=== PATIENT | female | born 1985 | race Asian ===

== ENCOUNTER → 2016-10-10 | Outpatient (REF) | payer BC ==
[~2016-10-10] MED LIST: FOLI1TAB2 PO; IBUP80TA PO; MULTTAB20 PO; PRENTAB40 PO; VALT500T PO; VIRE300T PO; ZITH250T PO
== END ==
LOC: M SFHCPLAZ 09:01
PROVIDERS: ATTEND Internal Medicine Infectious Disease
DX: B18.1 Chronic viral hepatitis B without delta-agent (principal)

== ENCOUNTER → 2016-10-13 | Outpatient (REF) | payer BC ==
[2016-10-13 12:17] LABS: BASO % 0.3 % (0.0-1.0); EOS # 0.1 K/mm3 (0.0-0.50); EOS % 1.4 % (0.0-3.0); LARGE UNSTAINED CELL # 0.2 K/mm3 (0.0-0.4); LARGE UNSTAINED CELL % 2.4 % (0.0-4.0); LYMPH # 1.8 K/mm3 (1.5-6.5); LYMPH % 21.3 % (24.0-44.0); MEAN CORPUSCULAR HEMOGLOBIN 30.2 pg (27.0-33.0); MEAN CORPUSCULAR HGB CONC 33.5 g/dl (32.0-36.5); MEAN CORPUSCULAR VOLUME 90.4 fl (80.0-96.0); MONO # 0.4 K/mm3 (0.0-0.8); MONO % 5.1 % (0.0-5.0); NEUTROPHILS # 5.8 K/mm3 (1.8-7.7); NEUTROPHILS % 69.5 % (36.0-66.0); PLATELET COUNT, AUTOMATED 291 k/mm3 (150-450); RED CELL DISTRIBUTION WIDTH 12.5 % (11.5-14.5); WHITE BLOOD COUNT 8.3 K/mm3 (4.0-10.0)
[2016-10-13 13:07] LABS: ALBUMIN 3.8 GM/DL (3.2-5.2); ALBUMIN/GLOBULIN RATIO 0.88 (1.00-1.93); ALKALINE PHOSPHATASE 77 U/L (45-117); ALT/SGPT 65 U/L (12-78); ANION GAP 10 MEQ/L (8-16); AST/SGOT 29 U/L (15-37); BILIRUBIN,TOTAL 0.7 MG/DL (0.2-1.0); BLOOD UREA NITROGEN 12 MG/DL (7-18); CALCIUM LEVEL 8.9 MG/DL (8.5-10.1); CARBON DIOXIDE LEVEL 29 MEQ/L (21-32); CHLORIDE LEVEL 101 MEQ/L (98-107); CHOLESTEROL LEVEL 210 MG/DL (<200); CREATININE FOR GFR 0.64 MG/DL (0.55-1.02); FREE T4 0.93 NG/DL (0.76-1.46); GLOMERULAR FILTRATION RATE > 60.0 (>60); GLUCOSE, FASTING 83 MG/DL (70-105); POTASSIUM SERUM 4.1 MEQ/L (3.5-5.1); SODIUM LEVEL 140 MEQ/L (136-145); TOTAL PROTEIN 8.1 GM/DL (6.4-8.2); TRIGLYCERIDES LEVEL 110 MG/DL (<150)
== END ==
LOC: M SFHCPLAZ 09:48
PROVIDERS: ATTEND Internal Medicine Infectious Disease
DX: Z00.00 Encounter for general adult medical examination without abnormal findings (principal); B18.1 Chronic viral hepatitis B without delta-agent

== ENCOUNTER → 2016-10-21 | Outpatient (CLI) | payer BC ==
--- NOTE | 2016-10-21 10:18 | REP ---
Liver ultrasound 10/21/2016 Indication: Right hepatitis B Comparison: None Findings: The gallbladder measures 6.3 x 2.8 by 2.5 cm in dimension. There is no cholelithiasis or gallbladder wall thickening. There is no pericholecystic fluid. There is a negative sonographic Melendez's sign. Common bile duct is 4.3 mm transverse dimension, within normal limits. The hepatic parenchyma is homogeneous in echotexture, without focal lesions or fatty infiltration. The pancreatic tail is slightly obscured by bowel gas. The remainder of the pancreas is within normal limits. The right kidney measures 12.0 by 5.7 x 4.3 cm. There is very minimal right renal pelviectasis. The renal cortical echogenicity is within normal limits. Impression 1. No evidence of cholelithiasis or biliary dilatation. Negative sonographic Melendez's sign 2. Unremarkable liver 3. Pancreatic tail slightly obscured by bowel gas. The remainder of the pancreas is unremarkable. 4. Minimal right renal pelviectasis. Signed by Poppy Martel MD 10/21/2016 10:09 A
== END ==
LOC: M RAD 09:00
PROVIDERS: ATTEND Internal Medicine Infectious Disease
DX: B18.1 Chronic viral hepatitis B without delta-agent (principal)

== ENCOUNTER 2016-11-23 15:58 | Emergency (ER) | payer BC, OTHER ==
[2016-11-23 17:25] LABS: BASO % 0.5 % (0.0-1.0); EOS % 0.6 % (0.0-3.0); LARGE UNSTAINED CELL # 0.2 K/mm3 (0.0-0.4); LYMPH # 1.3 K/mm3 (1.5-6.5); LYMPH % 14.6 % (24.0-44.0); MEAN CORPUSCULAR HEMOGLOBIN 29.9 pg (27.0-33.0); MEAN CORPUSCULAR VOLUME 90.5 fl (80.0-96.0); MONO # 0.4 K/mm3 (0.0-0.8); MONO % 4.3 % (0.0-5.0); NEUTROPHILS # 7.1 K/mm3 (1.8-7.7); NEUTROPHILS % 78.1 % (36.0-66.0); PLATELET COUNT, AUTOMATED 252 k/mm3 (150-450); RED CELL DISTRIBUTION WIDTH 11.7 % (11.5-14.5); WHITE BLOOD COUNT 9.1 K/mm3 (4.0-10.0)
[2016-11-23 17:30] LABS: CONTROL LINE UCG INT CTR LINE PRESENT
[2016-11-23 17:35] LABS: ANION GAP 7 MEQ/L (8-16); BLOOD UREA NITROGEN 10 MG/DL (7-18); CALCIUM LEVEL 9.1 MG/DL (8.5-10.1); CARBON DIOXIDE LEVEL 30 MEQ/L (21-32); CHLORIDE LEVEL 101 MEQ/L (98-107); CREATININE FOR GFR 0.67 MG/DL (0.55-1.02); GLOMERULAR FILTRATION RATE > 60.0 (>60); GLUCOSE, FASTING 111 MG/DL (70-105); POTASSIUM SERUM 3.8 MEQ/L (3.5-5.1); SODIUM LEVEL 138 MEQ/L (136-145)
[2016-11-23] MEDS ORDERED: BACTRIM 160MG/800MG DS TAB As Ordered ONE (18:17)
[2016-11-23] MEDS ORDERED: CEPHALEXIN 500 MG CAP As Ordered ONE (18:18)
--- NOTE | 2016-11-23 18:32 | EDDOCDS ---
Nurse's Notes [facility] Name: Niki No Age: 31 yrs Sex: Female : 1985 Arrival Date: 11/23/2016 Time: 15:58 Bed I4 / M4 Private MD: Maribel Rice M. Diagnosis: Streptococcal pharyngitis;Urinary tract infection, site not specified Presentation: 11/23 16:01 Presenting complaint: Patient states: Fever of 104.8 at home. LOYA, back pain since ck1 yesterday morning. Adult Sepsis Screening: The patient does not have new or worsening altered mentation. Patient's respiratory rate is less than 22. Systolic blood pressure is greater than 100. Patient has a qSOFA score of 0- Negative Sepsis Screen. Suicide/Homicide risk assessment- the patient denies having any suicidal and/or homicidal ideations and does not present with any other emotional, behavioral or mental health complaints. Status: Patient is not a customer service advocate or dependent. Transition of care: patient was not received from another setting of care. 16:01 Method Of Arrival: Walkin/Carried/Asstd ck1 16:01 Acuity: YVETTE Level 3 ck1 Triage Assessment: 16:04 General: Appears in no apparent distress, comfortable, Behavior is appropriate for age, ck1 cooperative. Pain: Location: head and back Pain currently is 7 out of 10 on a pain scale. HIV screening NA for this visit Offered previously. Respiratory: Respiratory effort is unlabored, Respiratory pattern is regular, symmetrical. GI: Abdomen is non- distended Reports nausea. Derm: Skin is intact, Skin is pink, warm & dry. SHIRRING TENDER: 16:05 LMP 11/17/2016 ck1 Historical: - Allergies: No known drug Allergies; - Home Meds: 1. Tylenol 325 mg oral tab 2 tabs PRN (Last dose: 11/23/2016 11:00) 2. ibuprofen 200 mg Oral cap 2 caps PRN (Last dose: 11/23/2016 16:00) - PMHx: Hepatitis B; - PSHx: Thyroidectomy; Cesearean Section; - Social history: Smoking status: Patient states was never smoker of tobacco. No barriers to communication noted, The patient speaks fluent Mongolian, Speaks appropriately for age. - Family history: co workers positive for flu A. - : The pt / caregiver states he / she is not on anticoagulants. Home medication list is obtained from the patient. - Exposure Risk Screening:: None identified. Screenin:11 Screening information is obtained from the patient. Fall risk: No risks identified. lf1 Assistance ADL's: requires no assistance with activities of daily living. Abuse/DV Screen: The patient / caregiver reports he/she is: not in a situation that causes fear, pain or injury. Nutritional screening: No deficits noted. Advance Directives: Currently, there is no health care proxy. home support is adequate. Assessment: 16:11 Adult Sepsis Screening: The patient does not have new or worsening altered mentation. lf1 Patient's respiratory rate is less than 22. Systolic blood pressure is greater than 100. Patient has a qSOFA score of 0- Negative Sepsis Screen. General: Appears in no apparent distress, comfortable, Behavior is cooperative. Pain: Location: back and head Pain currently is 7 out of 10 on a pain scale. Neurological: Level of Consciousness is awake, alert. Cardiovascular: Chest pain is denied. Respiratory: Respiratory effort is even, unlabored. GI: Denies nausea, vomiting. : Reports urinary frequency Denies burning with urination. Derm: No deficits noted. 17:30 General: PT in no acute distress. Will continue to monitor pt. ms18 18:29 General: Appears in no apparent distress, comfortable, Behavior is appropriate for age, ms18 cooperative, pleasant. Pain: Pain currently is 5 out of 10 on a pain scale. Neurological: Level of Consciousness is awake, alert, obeys commands, Oriented to person, place, time. Respiratory: Airway is patent Respiratory effort is even, unlabored, Respiratory pattern is regular, symmetrical. Derm: Skin is pink, warm & dry. Vital Signs: 15:59 BP 106 / 83; Pulse 93; Resp 18 S; Temp 101.0(O); Pulse Ox 100% on R/A; Weight 66.22 kg gr2 (R); Height 5 ft. 3 in. (160.02 cm) (R); Pain 5/10; 18:29 BP 127 / 67; Pulse 99; Resp 18; Temp 100.1(O); Pulse Ox 98% on R/A; Pain 5/10; ms18 15:59 Body Mass Index 25.86 (66.22 kg, 160.02 cm) gr2 Vitals: 15:59 Log In Time: November 23, 2016 at 15:59. gr2 17:14 Strep Screen is obtained and tested: Positive. ms18 ED Course: 15:59 Patient visited by Lisa Martell. gr2 15:59 Maribel Rice is Private Physician. gr2 15:59 Patient moved to Waiting gr2 16:00 Patient visited by Lisa Martell. gr2 16:00 Patient moved to Pre RCE gr2 16:02 Triage Initiated ck1 16:05 Patient moved to Triage 2 ck1 16:15 UA Sent. lf1 16:17 Patient visited by Mel Edwards,MADDY. lf1 16:20 Inserted saline lock: 20 gauge in right antecubital area. jmk 16:22 Oswaldo Laurent RPA-C is PHCP. ck7 16:22 Naye Werner MD is Attending Physician. ck7 16:22 Patient visited by Oswaldo Laurent RPA-C. ck7 16:36 Patient name changed from Yandan\S\\S\No\S\ to Yandan\S\ \S\No. EDMS 16:38 Patient moved to I4 / M4 lf1 16:39 [facility] Payment Agreement was scanned into [employer] and attached to record. gb 16:54 Patient visited by Oswaldo Laurent RPA-C. ck7 17:16 Patient visited by Liseth Schafer,MADDY. ms18 17:16 Urine Culture Sent. ms18 17:17 UCG- In Lab Sent. ms18 17:41 The patient / caregiver is instructed regarding the plan of care and ED course. jmk 17:42 Patient visited by Deny Reeves,MADDY. jmk 18:13 Patient visited by Oswaldo Laurent RPA-C. ck7 18:15 Maribel Rice is Referral Physician. ck7 18:29 Patient visited by Liseth Schafer,MADDY. ms18 18:29 Patient has correct armband on for positive identification. Placed in gown. Property ms18 sent home with patient. :Personal belongings accompany Pt. 18:29 Discontinued IV lock intact, bleeding controlled, pressure dressing applied, No ms18 redness/swelling at site. No procedures done that require assistance. Administered Medications: 18:21 Drug: Trimethoprim-Sulfamethoxazole 1 tabs [sulfamethoxazole 800 mg-trimethoprim 160 mg jmk tablet (1 tabs)] Route: PO; 18:22 Drug: Cephalexin 500 mg [cephalexin 250 mg capsule (2 caps)] Route: PO; jmk Order Results: Lab Order: UA; SPEC'M 11/23/16 16:12 Test: APPEARANCE, URINE; Value: CLOUDY; Range: CLEAR; Abnormal: Above high normal; Status: F Test: COLOR, URINE; Value: YELLOW; Range: YELLOW; Status: F Test: PH,URINE; Value: 8.0; Range: 5.0-9.0; Units: UNITS; Status: F Test: SPECIFIC GRAVITY URINE AUTO; Value: 1.019; Range: 1.002-1.035; Status: F Test: PROTEIN, URINE AUTO; Value: NEGATIVE; Range: NEGATIVE; Units: mg/dL; Status: F Test: GLUCOSE, URINE (UA) AUTO; Value: NEGATIVE; Range: NEGATIVE; Units: mg/dL; Status: F Test: KETONE, URINE AUTO; Value: NEGATIVE; Range: NEGATIVE; Units: mg/dL; Status: F Test: UROBILINOGEN, URINE AUTO; Value: 0.2; Range: 0.0-2.0; Units: mg/dL; Status: F Test: BILIRUBIN, URINE AUTO; Value: NEGATIVE; Range: NEGATIVE; Status: F Test: NITRITE, URINE AUTO; Value: NEGATIVE; Range: NEGATIVE; Status: F Test: LEUKOCYTE ESTERASE, URINE AUTO; Value: 3+; Range: NEGATIVE; Abnormal: Above high normal; Status: F Test: BLOOD, URINE BLOOD; Value: NEGATIVE; Range: NEGATIVE; Status: F Test: WBC, URINE AUTO; Value: 30; Range: 0-3; Abnormal: Above high normal; Units: /HPF; Status: F Test: RBC, URINE AUTO; Value: 2; Range: 0-3; Units: /HPF; Status: F Test: BACTERIA, URINE AUTO; Value: 1+; Range: NEGATIVE; Abnormal: Above high normal; Status: F Test: SQUAMOUS EPITHELIAL CELL UR AU; Value: 8; Range: 0-6; Units: /HPF; Status: F Test: HYALINE CAST, URINE AUTO; Value: 0; Range: 0-1; Units: /LPF; Status: F Test: AMORPHOUS SEDIMENT; Value: SMALL; Range: NEGATIVE; Abnormal: Above high normal; Status: F Lab Order: CBC with Diff; SPEC'M 11/23/16 16:46 Test: WHITE BLOOD COUNT; Value: 9.1; Range: 4.0-10.0; Units: K/mm3; Status: F Test: RED BLOOD COUNT; Value: 4.77; Range: 4.00-5.40; Units: M/mm3; Status: F Test: HEMOGLOBIN; Value: 14.3; Range: 12.0-16.0; Units: g/dl; Status: F Test: HEMATOCRIT; Value: 43.2; Range: 36.0-47.0; Units: %; Status: F Test: MEAN CORPUSCULAR VOLUME; Value: 90.5; Range: 80.0-96.0; Units: fl; Status: F Test: MEAN CORPUSCULAR HEMOGLOBIN; Value: 29.9; Range: 27.0-33.0; Units: pg; Status: F Test: MEAN CORPUSCULAR HGB CONC; Value: 33.0; Range: 32.0-36.5; Units: g/dl; Status: F Test: RED CELL DISTRIBUTION WIDTH; Value: 11.7; Range: 11.5-14.5; Units: %; Status: F Test: PLATELET COUNT, AUTOMATED; Value: 252; Range: 150-450; Units: k/mm3; Status: F Test: NEUTROPHILS %; Value: 78.1; Range: 36.0-66.0; Abnormal: Above high normal; Units: %; Status: F Test: LYMPH %; Value: 14.6; Range: 24.0-44.0; Abnormal: Below low normal; Units: %; Status: F Test: MONO %; Value: 4.3; Range: 0.0-5.0; Units: %; Status: F Test: EOS %; Value: 0.6; Range: 0.0-3.0; Units: %; Status: F Test: BASO %; Value: 0.5; Range: 0.0-1.0; Units: %; Status: F Test: LARGE UNSTAINED CELL %; Value: 2.0; Range: 0.0-4.0; Units: %; Status: F Test: NEUTROPHILS #; Value: 7.1; Range: 1.8-7.7; Units: K/mm3; Status: F Test: LYMPH #; Value: 1.3; Range: 1.5-6.5; Abnormal: Below low normal; Units: K/mm3; Status: F Test: MONO #; Value: 0.4; Range: 0.0-0.8; Units: K/mm3; Status: F Test: EOS #; Value: 0.0; Range: 0.0-0.50; Units: K/mm3; Status: F Test: BASO #; Value: 0.0; Range: 0.0-0.2; Units: K/mm3; Status: F Test: LARGE UNSTAINED CELL #; Value: 0.2; Range: 0.0-0.4; Units: K/mm3; Status: F Lab Order: MED Profile; [facility] 11/23/16 16:46 Test: GLUCOSE, FASTING; Value: 111; Range: 70-105; Abnormal: Above high normal; Units: MG/DL; Status: F Test: BLOOD UREA NITROGEN; Value: 10; Range: 7-18; Units: MG/DL; Status: F Test: CREATININE FOR GFR; Value: 0.67; Range: 0.55-1.02; Units: MG/DL; Status: F Test: GLOMERULAR FILTRATION RATE; Value: > 60.0; Range: >60; Status: F Test: SODIUM LEVEL; Value: 138; Range: 136-145; Units: MEQ/L; Status: F Test: POTASSIUM SERUM; Value: 3.8; Range: 3.5-5.1; Units: MEQ/L; Status: F Test: CHLORIDE LEVEL; Value: 101; Range: 98-107; Units: MEQ/L; Status: F Test: CARBON DIOXIDE LEVEL; Value: 30; Range: 21-32; Units: MEQ/L; Status: F Test: ANION GAP; Value: 7; Range: 8-16; Abnormal: Below low normal; Units: MEQ/L; Status: F Test: CALCIUM LEVEL; Value: 9.1; Range: 8.5-10.1; Units: MG/DL; Status: F Test Note: ; Units are mL/min/1.73 m2 Chronic Kidney Disease Staging per NKF: Stage I & II GFR >=60 Normal to Mildly Decreased Stage III GFR 30-59 Moderately Decreased Stage IV GFR 15-29 Severely Decreased Stage V GFR <15 Very Little GFR Left ESRD GFR <15 on BLOCK CLEANER Lab Order: -Influenza A&B Rapid Antigen - Nose; SPEC'M 11/23/16 16:46 Test: INFLUENZA A RAPID SCR by ICA; Value: INFLUENZA A RESULTS NEGATIVE; Status: F Test: INFLUENZA A RAPID SCR by ICA; Value: Comments:; Status: F Test: INFLUENZA B RAPID SCR by ICA; Value: INFLUENZA B RESULTS NEGATIVE; Status: F Test Note: ; The Influenza test is a direct rapid immunoassay for the qualitative detection of Influenza viral antigen. Cell culture (Viral Culture) testing should be considered to confirm NEGATIVE results and to assist in detecting other viruses that can provide similar clinical symptoms. Please contact the lab within 24 hours ([phone] if confirmatory testing is desired. Lab Order: UCG- In Lab; SPEC'M 11/23/16 16:12 Test: URINE PREG TEST; Value: NEGATIVE; Range: NEGATIVE; Status: F Outcome: 18:16 Discharge ordered by Provider. ck7 18:29 Discharge Assessment: Patient awake, alert and oriented x 3. No cognitive and/or ms18 functional deficits noted. Patient verbalized understanding of disposition instructions. patient administered narcotics - no. The following High Risk Discharge criteria are identified: None. Discharged to home ambulatory. Condition: good Condition: stable Condition: improved. Discharge instructions given to patient, Instructed on discharge instructions, follow up and referral plans. medication usage, Demonstrated understanding of instructions, medications, Pt was receptive of discharge instructions/ teaching. Prescriptions given X 2. No special radiology studies were completed. 18:31 Patient left the ED. ms18 Signatures: Dispatcher [employer] EDMS Deny Reeves,RN RN Diana Mcleod, Reg Reg Helena Zaldivar,RN RN ck1 Mel EdwardsRN RN lf1 Oswaldo Laurent RPA-C RPA-Cck7 Lisa Martell gr2 Liseth Schafer RN RN ms18 MTDD
--- NOTE | 2016-11-23 18:32 | EDDOCDS ---
Physician Documentation [facility] Name: Niki No Age: 31 yrs Sex: Female : 1985 Arrival Date: 11/23/2016 Time: 15:58 Bed I4 / M4 Private MD: Maribel Rice M. Disposition: 11/23/16 18:16 Discharged to Home/Self Care. Impression: Streptococcal pharyngitis, Urinary tract infection, site not specified. - Condition is Stable. - Discharge Instructions: Strep Throat, Hkes-cz-Yvoz, Urinary Tract Infection, Wdgv-ie-Meuk. - Prescriptions for Keflex 500 mg Oral Capsule - take 1 capsule by ORAL route every 6 hours for 10 days; 40 capsule. Bactrim DS 800- 160 mg Oral Tablet - take 1 tablet by ORAL route every 12 hours for 10 days; 20 tablet. - Medication Reconciliation, Local Pharmacy Hours form. - Follow up: Maribel Rice; When: 2 - 3 days; Reason: Recheck today's complaints, Continuance of care. - Problem is new. - Symptoms have improved. - Notes: USE THE MEDICATION INSTRUCTED, FOLLOW UP WITH YOUR DOCTOR IN 2-3 DAYS, USE TYLENOL OR MOTRIN FOR FEVER CONTROL, RETURN TO THE ER IF THE SYMPTOMS WORSEN OR BECOME CONCERNING Historical: - Allergies: No known drug Allergies; - Home Meds: 1. Tylenol 325 mg oral tab 2 tabs PRN (Last dose: 11/23/2016 11:00) 2. ibuprofen 200 mg Oral cap 2 caps PRN (Last dose: 11/23/2016 16:00) - PMHx: Hepatitis B; - PSHx: Thyroidectomy; Cesearean Section; - Social history: Smoking status: Patient states was never smoker of tobacco. No barriers to communication noted, The patient speaks fluent Yakut, Speaks appropriately for age. - Family history: co workers positive for flu A. - : The pt / caregiver states he / she is not on anticoagulants. Home medication list is obtained from the patient. - Exposure Risk Screening:: None identified. LVN: 11/23 16:05 LMP 11/17/2016 ck1 Vital Signs: 15:59 BP 106 / 83; Pulse 93; Resp 18 S; Temp 101.0(O); Pulse Ox 100% on R/A; Weight 66.22 kg gr2 / 145.99 lbs (R); Height 5 ft. 3 in. (160.02 cm) (R); Pain 5/10; 18:29 BP 127 / 67; Pulse 99; Resp 18; Temp 100.1(O); Pulse Ox 98% on R/A; Pain 5/10; ms18 15:59 Body Mass Index 25.86 (66.22 kg, 160.02 cm) gr2 MDM: 16:11 UA Ordered. EDMS 16:32 Financial registration complete. gb 16:32 -Blood Culture (Adults Only), peripheral from different site, or from device/port/PICC ck7 etc. if present ordered. 16:32 Obtain sample by nasopharyngeal swab ordered. ck7 16:32 Strep Screen, Nursing ordered. ck7 16:33 CBC with Diff Ordered. EDMS 16:33 MED Profile Ordered. EDMS 16:33 Urine Culture Ordered. EDMS 16:33 -Blood Culture Ordered. EDMS 16:33 -Influenza A&B Rapid Antigen - Nose Ordered. EDMS 16:33 Chest, 2 View (pa\E\lat) Ordered. EDMS 16:39 [facility] [place] was scanned into [employer] and attached to record. gb 16:54 -Blood Culture (Adults Only), peripheral from different site, or from device/port/PICC nb2 etc. if present complete. 16:55 BLOOD CULTURES Ordered. EDMS 17:17 UCG- In Lab Ordered. EDMS 17:36 UA Reviewed. ck7 17:36 CBC with Diff Reviewed. ck7 17:36 -Influenza A&B Rapid Antigen - Nose Reviewed. ck7 17:36 UCG- In Lab Reviewed. ck7 17:42 MED Profile Reviewed. ck7 17:43 Cephalexin 500 mg PO once ordered. ck7 17:43 Trimethoprim-Sulfamethoxazole 160 mg-800 mg (DS) 1 tabs PO once ordered. ck7 Administered Medications: 18:21 Drug: Trimethoprim-Sulfamethoxazole 1 tabs [sulfamethoxazole 800 mg-trimethoprim 160 mg jmk tablet (1 tabs)] Route: PO; 18:22 Drug: Cephalexin 500 mg [cephalexin 250 mg capsule (2 caps)] Route: PO; jmk Signatures: Dispatcher [employer] EDMS Diana Pena, Reg Reg Helena Zaldivar,RN RN ck1 Edwards,Mel,RN RN lf1 Oswaldo Laurent, RPA-C RPA-Cck7 Liseth SchaferRN RN ms18 Tiffany Patterson Jean RN jmk The chart was reviewed and I authenticate all verbal orders and agree with the evaluation and treatment provided.Corrections: (The following items were deleted from the chart) 17:16 16:32 UCG by Nursing ordered. ck7 ms18 Attachments: 16:39 [facility] [place] Agreement gb MTDD
--- NOTE | 2016-11-23 19:11 | REP ---
CHEST X-RAY, PA AND LATERAL: 11/23/2016. Clinical history: Fever. Findings: Two views are presented without prior study. Findings: Lungs are well inflated. There is some peribronchial thickening and streaky densities perihilar region, right greater than left. No dense consolidation or effusion. Heart, mediastinal and hilar contours are normal. Airway intact. Bony thorax shows no focal lesion. Impression: 1. Some minor perihilar streaky densities and peribronchial thickening right greater than left. This may reflect bronchitis or reactive airway disease. No effusion. Signed by Alexis Garcia MD 11/23/2016 08:30 P
--- NOTE | 2016-11-25 19:32 | EDDOCDS ---
Physician Documentation [facility] Name: Niki No Age: 31 yrs Sex: Female : 1985 Arrival Date: 11/23/2016 Time: 15:58 Bed I4 / M4 Private MD: Maribel Rice M. Disposition: 11/23/16 18:16 Discharged to Home/Self Care. Impression: Streptococcal pharyngitis, Urinary tract infection, site not specified. - Condition is Stable. - Discharge Instructions: Strep Throat, Wobv-di-Flgv, Urinary Tract Infection, Wbms-ko-Ezlw. - Prescriptions for Keflex 500 mg Oral Capsule - take 1 capsule by ORAL route every 6 hours for 10 days; 40 capsule. Bactrim DS 800- 160 mg Oral Tablet - take 1 tablet by ORAL route every 12 hours for 10 days; 20 tablet. - Medication Reconciliation, Local Pharmacy Hours form. - Follow up: Maribel Rice; When: 2 - 3 days; Reason: Recheck today's complaints, Continuance of care. - Problem is new. - Symptoms have improved. - Notes: USE THE MEDICATION INSTRUCTED, FOLLOW UP WITH YOUR DOCTOR IN 2-3 DAYS, USE TYLENOL OR MOTRIN FOR FEVER CONTROL, RETURN TO THE ER IF THE SYMPTOMS WORSEN OR BECOME CONCERNING Historical: - Allergies: No known drug Allergies; - Home Meds: 1. Tylenol 325 mg oral tab 2 tabs PRN (Last dose: 11/23/2016 11:00) 2. ibuprofen 200 mg Oral cap 2 caps PRN (Last dose: 11/23/2016 16:00) - PMHx: Hepatitis B; - PSHx: Thyroidectomy; Cesearean Section; - Social history: Smoking status: Patient states was never smoker of tobacco. No barriers to communication noted, The patient speaks fluent Sami, Speaks appropriately for age. - Family history: co workers positive for flu A. - : The pt / caregiver states he / she is not on anticoagulants. Home medication list is obtained from the patient. - Exposure Risk Screening:: None identified. TWO WAY RADIO INSTALLER: 11/23 16:05 LMP 11/17/2016 ck1 Vital Signs: 15:59 BP 106 / 83; Pulse 93; Resp 18 S; Temp 101.0(O); Pulse Ox 100% on R/A; Weight 66.22 kg gr2 / 145.99 lbs (R); Height 5 ft. 3 in. (160.02 cm) (R); Pain 5/10; 18:29 BP 127 / 67; Pulse 99; Resp 18; Temp 100.1(O); Pulse Ox 98% on R/A; Pain 5/10; ms18 15:59 Body Mass Index 25.86 (66.22 kg, 160.02 cm) gr2 MDM: 16:11 UA Ordered. EDMS 16:32 Financial registration complete. gb 16:32 -Blood Culture (Adults Only), peripheral from different site, or from device/port/PICC ck7 etc. if present ordered. 16:32 Obtain sample by nasopharyngeal swab ordered. ck7 16:32 Strep Screen, Nursing ordered. ck7 16:33 CBC with Diff Ordered. EDMS 16:33 MED Profile Ordered. EDMS 16:33 Urine Culture Ordered. EDMS 16:33 -Blood Culture Ordered. EDMS 16:33 -Influenza A&B Rapid Antigen - Nose Ordered. EDMS 16:33 Chest, 2 View (pa\E\lat) Ordered. EDMS 16:39 [facility] [place] Payment Agreement was scanned into [employer] and attached to record. gb 16:54 -Blood Culture (Adults Only), peripheral from different site, or from device/port/PICC nb2 etc. if present complete. 16:55 BLOOD CULTURES Ordered. EDMS 17:17 UCG- In Lab Ordered. EDMS 17:36 UA Reviewed. ck7 17:36 CBC with Diff Reviewed. ck7 17:36 -Influenza A&B Rapid Antigen - Nose Reviewed. ck7 17:36 UCG- In Lab Reviewed. ck7 17:42 MED Profile Reviewed. ck7 17:43 Cephalexin 500 mg PO once ordered. ck7 17:43 Trimethoprim-Sulfamethoxazole 160 mg-800 mg (DS) 1 tabs PO once ordered. ck7 11/24 17:52 T-Sheet-- Draft Copy was scanned into [employer] and attached to record. klr Administered Medications: 11/23 18:21 Drug: Trimethoprim-Sulfamethoxazole 1 tabs [sulfamethoxazole 800 mg-trimethoprim 160 mg jmk tablet (1 tabs)] Route: PO; 18:22 Drug: Cephalexin 500 mg [cephalexin 250 mg capsule (2 caps)] Route: PO; bong Signatures: Dispatcher [employer] EDMS Diana Pena, Reg Reg gb Helena GaleRN RN ck1 Mel EdwardsRN RN lf1 Oswaldo Laurent, PERLITA-C RPA-Cck7 Liseth Schafer RN RN ms18 Deanne Zarate Nicole nb2 Knapp, Jean RN jmk The chart was reviewed and I authenticate all verbal orders and agree with the evaluation and treatment provided.Corrections: (The following items were deleted from the chart) 17:16 16:32 UCG by Nursing ordered. ck7 ms18 Attachments: 16:39 [facility] [place] Payment Agreement 11/24 17:52 T-Sheet-- Draft Copy juan josé Chart Complete MTDD
--- NOTE | 2016-11-25 19:32 | EDDOCDS ---
Physician Documentation [facility] Name: Niki No Age: 31 yrs Sex: Female : 1985 Arrival Date: 11/23/2016 Time: 15:58 Bed I4 / M4 Private MD: Maribel Rice M. Disposition: 11/23/16 18:16 Discharged to Home/Self Care. Impression: Streptococcal pharyngitis, Urinary tract infection, site not specified. - Condition is Stable. - Discharge Instructions: Strep Throat, [id number], Urinary Tract Infection, [id number]. - Prescriptions for Keflex 500 mg Oral Capsule - take 1 capsule by ORAL route every 6 hours for 10 days; 40 capsule. Bactrim DS 800- 160 mg Oral Tablet - take 1 tablet by ORAL route every 12 hours for 10 days; 20 tablet. - Medication Reconciliation, Local Pharmacy Hours form. - Follow up: Maribel Rice; When: 2 - 3 days; Reason: Recheck today's complaints, Continuance of care. - Problem is new. - Symptoms have improved. - Notes: USE THE MEDICATION INSTRUCTED, FOLLOW UP WITH YOUR DOCTOR IN 2-3 DAYS, USE TYLENOL OR MOTRIN FOR FEVER CONTROL, RETURN TO THE ER IF THE SYMPTOMS WORSEN OR BECOME CONCERNING Historical: - Allergies: No known drug Allergies; - Home Meds: 1. Tylenol 325 mg oral tab 2 tabs PRN (Last dose: 11/23/2016 11:00) 2. ibuprofen 200 mg Oral cap 2 caps PRN (Last dose: 11/23/2016 16:00) - PMHx: Hepatitis B; - PSHx: Thyroidectomy; Cesearean Section; - Social history: Smoking status: Patient states was never smoker of tobacco. No barriers to communication noted, The patient speaks fluent Chinese, Speaks appropriately for age. - Family history: co workers positive for flu A. - : The pt / caregiver states he / she is not on anticoagulants. Home medication list is obtained from the patient. - Exposure Risk Screening:: None identified. MODELER: 11/23 16:05 LMP 11/17/2016 ck1 Vital Signs: 15:59 BP 106 / 83; Pulse 93; Resp 18 S; Temp 101.0(O); Pulse Ox 100% on R/A; Weight 66.22 kg gr2 / 145.99 lbs (R); Height 5 ft. 3 in. (160.02 cm) (R); Pain 5/10; 18:29 BP 127 / 67; Pulse 99; Resp 18; Temp 100.1(O); Pulse Ox 98% on R/A; Pain 5/10; ms18 15:59 Body Mass Index 25.86 (66.22 kg, 160.02 cm) gr2 MDM: 16:11 UA Ordered. EDMS 16:32 Financial registration complete. gb 16:32 -Blood Culture (Adults Only), peripheral from different site, or from device/port/PICC ck7 etc. if present ordered. 16:32 Obtain sample by nasopharyngeal swab ordered. ck7 16:32 Strep Screen, Nursing ordered. ck7 16:33 CBC with Diff Ordered. EDMS 16:33 MED Profile Ordered. EDMS 16:33 Urine Culture Ordered. EDMS 16:33 -Blood Culture Ordered. EDMS 16:33 -Influenza A&B Rapid Antigen - Nose Ordered. EDMS 16:33 Chest, 2 View (pa\E\lat) Ordered. EDMS 16:39 [facility] [place] Payment Agreement was scanned into [employer] and attached to record. gb 16:54 -Blood Culture (Adults Only), peripheral from different site, or from device/port/PICC nb2 etc. if present complete. 16:55 BLOOD CULTURES Ordered. EDMS 17:17 UCG- In Lab Ordered. EDMS 17:36 UA Reviewed. ck7 17:36 CBC with Diff Reviewed. ck7 17:36 -Influenza A&B Rapid Antigen - Nose Reviewed. ck7 17:36 UCG- In Lab Reviewed. ck7 17:42 MED Profile Reviewed. ck7 17:43 Cephalexin 500 mg PO once ordered. ck7 17:43 Trimethoprim-Sulfamethoxazole 160 mg-800 mg (DS) 1 tabs PO once ordered. ck7 11/24 17:52 T-Sheet-- Draft Copy was scanned into [employer] and attached to record. klr Administered Medications: 11/23 18:21 Drug: Trimethoprim-Sulfamethoxazole 1 tabs [sulfamethoxazole 800 mg-trimethoprim 160 mg jmk tablet (1 tabs)] Route: PO; 18:22 Drug: Cephalexin 500 mg [cephalexin 250 mg capsule (2 caps)] Route: PO; bong Signatures: Dispatcher [employer] EDMS Diana Pena, Reg Reg gb Helena GaleRN RN ck1 Mel EdwardsRN RN lf1 Oswaldo Laurent, PERLITA-C RPA-Cck7 Liseth Schafer RN RN ms18 Deanne Zarate Nicole nb2 Knapp, Jean RN jmk The chart was reviewed and I authenticate all verbal orders and agree with the evaluation and treatment provided.Corrections: (The following items were deleted from the chart) 17:16 16:32 UCG by Nursing ordered. ck7 ms18 Attachments: 16:39 [facility] [place] Payment Agreement 11/24 17:52 T-Sheet-- Draft Copy juan josé Chart Complete MTDD
--- NOTE | 2016-11-25 19:32 | EDDOCDS ---
Nurse's Notes [facility] Name: Niki No Age: 31 yrs Sex: Female : 1985 Arrival Date: 11/23/2016 Time: 15:58 Bed I4 / M4 Private MD: Maribel Rice M. Diagnosis: Streptococcal pharyngitis;Urinary tract infection, site not specified Presentation: 11/23 16:01 Presenting complaint: Patient states: Fever of 104.8 at home. LOYA, back pain since ck1 yesterday morning. Adult Sepsis Screening: The patient does not have new or worsening altered mentation. Patient's respiratory rate is less than 22. Systolic blood pressure is greater than 100. Patient has a qSOFA score of 0- Negative Sepsis Screen. Suicide/Homicide risk assessment- the patient denies having any suicidal and/or homicidal ideations and does not present with any other emotional, behavioral or mental health complaints. Status: Patient is not a message and delivery service pricer or dependent. Transition of care: patient was not received from another setting of care. 16:01 Method Of Arrival: Walkin/Carried/Asstd ck1 16:01 Acuity: YVETTE Level 3 ck1 Triage Assessment: 16:04 General: Appears in no apparent distress, comfortable, Behavior is appropriate for age, ck1 cooperative. Pain: Location: head and back Pain currently is 7 out of 10 on a pain scale. HIV screening NA for this visit Offered previously. Respiratory: Respiratory effort is unlabored, Respiratory pattern is regular, symmetrical. GI: Abdomen is non- distended Reports nausea. Derm: Skin is intact, Skin is pink, warm & dry. MEAT LUGGER: 16:05 LMP 11/17/2016 ck1 Historical: - Allergies: No known drug Allergies; - Home Meds: 1. Tylenol 325 mg oral tab 2 tabs PRN (Last dose: 11/23/2016 11:00) 2. ibuprofen 200 mg Oral cap 2 caps PRN (Last dose: 11/23/2016 16:00) - PMHx: Hepatitis B; - PSHx: Thyroidectomy; Cesearean Section; - Social history: Smoking status: Patient states was never smoker of tobacco. No barriers to communication noted, The patient speaks fluent Ukrainian, Speaks appropriately for age. - Family history: co workers positive for flu A. - : The pt / caregiver states he / she is not on anticoagulants. Home medication list is obtained from the patient. - Exposure Risk Screening:: None identified. Screenin:11 Screening information is obtained from the patient. Fall risk: No risks identified. lf1 Assistance ADL's: requires no assistance with activities of daily living. Abuse/DV Screen: The patient / caregiver reports he/she is: not in a situation that causes fear, pain or injury. Nutritional screening: No deficits noted. Advance Directives: Currently, there is no health care proxy. home support is adequate. Assessment: 16:11 Adult Sepsis Screening: The patient does not have new or worsening altered mentation. lf1 Patient's respiratory rate is less than 22. Systolic blood pressure is greater than 100. Patient has a qSOFA score of 0- Negative Sepsis Screen. General: Appears in no apparent distress, comfortable, Behavior is cooperative. Pain: Location: back and head Pain currently is 7 out of 10 on a pain scale. Neurological: Level of Consciousness is awake, alert. Cardiovascular: Chest pain is denied. Respiratory: Respiratory effort is even, unlabored. GI: Denies nausea, vomiting. : Reports urinary frequency Denies burning with urination. Derm: No deficits noted. 17:30 General: PT in no acute distress. Will continue to monitor pt. ms18 18:29 General: Appears in no apparent distress, comfortable, Behavior is appropriate for age, ms18 cooperative, pleasant. Pain: Pain currently is 5 out of 10 on a pain scale. Neurological: Level of Consciousness is awake, alert, obeys commands, Oriented to person, place, time. Respiratory: Airway is patent Respiratory effort is even, unlabored, Respiratory pattern is regular, symmetrical. Derm: Skin is pink, warm & dry. Vital Signs: 15:59 BP 106 / 83; Pulse 93; Resp 18 S; Temp 101.0(O); Pulse Ox 100% on R/A; Weight 66.22 kg gr2 (R); Height 5 ft. 3 in. (160.02 cm) (R); Pain 5/10; 18:29 BP 127 / 67; Pulse 99; Resp 18; Temp 100.1(O); Pulse Ox 98% on R/A; Pain 5/10; ms18 15:59 Body Mass Index 25.86 (66.22 kg, 160.02 cm) gr2 Vitals: 15:59 Log In Time: November 23, 2016 at 15:59. gr2 17:14 Strep Screen is obtained and tested: Positive. ms18 ED Course: 15:59 Patient visited by Lisa Martell. gr2 15:59 Maribel Rice is Private Physician. gr2 15:59 Patient moved to Waiting gr2 16:00 Patient visited by Lisa Martell. gr2 16:00 Patient moved to Pre RCE gr2 16:02 Triage Initiated ck1 16:05 Patient moved to Triage 2 ck1 16:15 UA Sent. lf1 16:17 Patient visited by Mel Edwards,MADDY. lf1 16:20 Inserted saline lock: 20 gauge in right antecubital area. jmk 16:22 Oswaldo Laurent RPA-C is PHCP. ck7 16:22 Naye Werner MD is Attending Physician. ck7 16:22 Patient visited by Oswaldo Laurent RPA-C. ck7 16:36 Patient name changed from Yandan\S\\S\No\S\ to Yandan\S\ \S\No. EDMS 16:38 Patient moved to I4 / M4 lf1 16:39 [facility] [place] Payment Agreement was scanned into [employer] and attached to record. gb 16:54 Patient visited by Oswaldo Laurent RPA-C. ck7 17:16 Patient visited by Liseth Schafer,MADDY. ms18 17:16 Urine Culture Sent. ms18 17:17 UCG- In Lab Sent. ms18 17:41 The patient / caregiver is instructed regarding the plan of care and ED course. jmk 17:42 Patient visited by Deny Reeves,MADDY. jmk 18:13 Patient visited by Oswaldo Laurent RPA-C. ck7 18:15 Maribel Rice is Referral Physician. ck7 18:29 Patient visited by Liseth Schafer,MADDY. ms18 18:29 Patient has correct armband on for positive identification. Placed in gown. Property ms18 sent home with patient. :Personal belongings accompany Pt. 18:29 Discontinued IV lock intact, bleeding controlled, pressure dressing applied, No ms18 redness/swelling at site. No procedures done that require assistance. 19:21 Chest, 2 View (pa\E\lat) Returned. EDMS 11/24 17:52 T-Sheet-- Draft Copy was scanned into [employer] and attached to record. klr Administered Medications: 11/23 18:21 Drug: Trimethoprim-Sulfamethoxazole 1 tabs [sulfamethoxazole 800 mg-trimethoprim 160 mg jmk tablet (1 tabs)] Route: PO; 18:22 Drug: Cephalexin 500 mg [cephalexin 250 mg capsule (2 caps)] Route: PO; jmk Order Results: Lab Order: UA; SPEC'M 11/23/16 16:12 Test: APPEARANCE, URINE; Value: CLOUDY; Range: CLEAR; Abnormal: Above high normal; Status: F Test: COLOR, URINE; Value: YELLOW; Range: YELLOW; Status: F Test: PH,URINE; Value: 8.0; Range: 5.0-9.0; Units: UNITS; Status: F Test: SPECIFIC GRAVITY URINE AUTO; Value: 1.019; Range: 1.002-1.035; Status: F Test: PROTEIN, URINE AUTO; Value: NEGATIVE; Range: NEGATIVE; Units: mg/dL; Status: F Test: GLUCOSE, URINE (UA) AUTO; Value: NEGATIVE; Range: NEGATIVE; Units: mg/dL; Status: F Test: KETONE, URINE AUTO; Value: NEGATIVE; Range: NEGATIVE; Units: mg/dL; Status: F Test: UROBILINOGEN, URINE AUTO; Value: 0.2; Range: 0.0-2.0; Units: mg/dL; Status: F Test: BILIRUBIN, URINE AUTO; Value: NEGATIVE; Range: NEGATIVE; Status: F Test: NITRITE, URINE AUTO; Value: NEGATIVE; Range: NEGATIVE; Status: F Test: LEUKOCYTE ESTERASE, URINE AUTO; Value: 3+; Range: NEGATIVE; Abnormal: Above high normal; Status: F Test: BLOOD, URINE BLOOD; Value: NEGATIVE; Range: NEGATIVE; Status: F Test: WBC, URINE AUTO; Value: 30; Range: 0-3; Abnormal: Above high normal; Units: /HPF; Status: F Test: RBC, URINE AUTO; Value: 2; Range: 0-3; Units: /HPF; Status: F Test: BACTERIA, URINE AUTO; Value: 1+; Range: NEGATIVE; Abnormal: Above high normal; Status: F Test: SQUAMOUS EPITHELIAL CELL UR AU; Value: 8; Range: 0-6; Units: /HPF; Status: F Test: HYALINE CAST, URINE AUTO; Value: 0; Range: 0-1; Units: /LPF; Status: F Test: AMORPHOUS SEDIMENT; Value: SMALL; Range: NEGATIVE; Abnormal: Above high normal; Status: F Lab Order: Urine Culture; SPEC'M 11/23/16 16:12 Test: URINE CULTURE; Value: <EXTERNAL COMMENT eCWMed> FULL REPORT IN LAB NOTES (eCW and Medent).; Status: F Test: URINE CULTURE; Value: ORGANISM 1: ESCHERICHIA COLI; Status: F Test: URINE CULTURE; Value: ESCHERICHIA COLI; Status: F Test: URINE CULTURE; Value: COLONY COUNT CFU/ml >100,000; Status: F Test: URINE CULTURE; Value: GRAM NEG SENSI - VITEK 80; Status: F Test: URINE CULTURE; Value: Method: VIT2; Status: F Test: URINE CULTURE; Value: EXTD BRD SPCTRM BETA LACTAMASE -; Status: F Test: URINE CULTURE; Value: TRIMETHOPRIM/SULFAMETHOXAZOLE >=320 R; Status: F Test: URINE CULTURE; Value: AMPICILLIN >=32 R; Status: F Test: URINE CULTURE; Value: GENTAMICIN 2 S; Status: F Test: URINE CULTURE; Value: NITROFURANTOIN <=16 S; Status: F Test: URINE CULTURE; Value: CEFAZOLIN <=4 S; Status: F Test: URINE CULTURE; Value: LEVOFLOXACIN >=8 R; Status: F Test: URINE CULTURE; Value: TOBRAMYCIN <=1 S; Status: F Test: URINE CULTURE; Value: CEFTRIAXONE <=1 S; Status: F Test: URINE CULTURE; Value: CEFTAZIDIME <=1 S; Status: F Test: URINE CULTURE; Value: AMPICILLIN/SULBACTAM 16 I; Status: F Test: URINE CULTURE; Value: PIPERACILLIN/TAZOBACTAM <=4 S; Status: F Test: URINE CULTURE; Value: AZTREONAM <=1 S; Status: F Test: URINE CULTURE; Value: ERTAPENEM <=0.5 S; Status: F Test: URINE CULTURE; Value: MEROPENEM <=0.25 S; Status: F Test: URINE CULTURE; Value: TIGECYCLINE <=0.5 S; Status: F Test: URINE CULTURE; Value: CEFEPIME <=1 S; Status: F Lab Order: CBC with Diff; SPEC'M 11/23/16 16:46 Test: WHITE BLOOD COUNT; Value: 9.1; Range: 4.0-10.0; Units: K/mm3; Status: F Test: RED BLOOD COUNT; Value: 4.77; Range: 4.00-5.40; Units: M/mm3; Status: F Test: HEMOGLOBIN; Value: 14.3; Range: 12.0-16.0; Units: g/dl; Status: F Test: HEMATOCRIT; Value: 43.2; Range: 36.0-47.0; Units: %; Status: F Test: MEAN CORPUSCULAR VOLUME; Value: 90.5; Range: 80.0-96.0; Units: fl; Status: F Test: MEAN CORPUSCULAR HEMOGLOBIN; Value: 29.9; Range: 27.0-33.0; Units: pg; Status: F Test: MEAN CORPUSCULAR HGB CONC; Value: 33.0; Range: 32.0-36.5; Units: g/dl; Status: F Test: RED CELL DISTRIBUTION WIDTH; Value: 11.7; Range: 11.5-14.5; Units: %; Status: F Test: PLATELET COUNT, AUTOMATED; Value: 252; Range: 150-450; Units: k/mm3; Status: F Test: NEUTROPHILS %; Value: 78.1; Range: 36.0-66.0; Abnormal: Above high normal; Units: %; Status: F Test: LYMPH %; Value: 14.6; Range: 24.0-44.0; Abnormal: Below low normal; Units: %; Status: F Test: MONO %; Value: 4.3; Range: 0.0-5.0; Units: %; Status: F Test: EOS %; Value: 0.6; Range: 0.0-3.0; Units: %; Status: F Test: BASO %; Value: 0.5; Range: 0.0-1.0; Units: %; Status: F Test: LARGE UNSTAINED CELL %; Value: 2.0; Range: 0.0-4.0; Units: %; Status: F Test: NEUTROPHILS #; Value: 7.1; Range: 1.8-7.7; Units: K/mm3; Status: F Test: LYMPH #; Value: 1.3; Range: 1.5-6.5; Abnormal: Below low normal; Units: K/mm3; Status: F Test: MONO #; Value: 0.4; Range: 0.0-0.8; Units: K/mm3; Status: F Test: EOS #; Value: 0.0; Range: 0.0-0.50; Units: K/mm3; Status: F Test: BASO #; Value: 0.0; Range: 0.0-0.2; Units: K/mm3; Status: F Test: LARGE UNSTAINED CELL #; Value: 0.2; Range: 0.0-0.4; Units: K/mm3; Status: F Lab Order: MED Profile; [facility] 11/23[facility]16 16:46 Test: GLUCOSE, FASTING; Value: 111; Range: 70-105; Abnormal: Above high normal; Units: MG/DL; Status: F Test: BLOOD UREA NITROGEN; Value: 10; Range: 7-18; Units: MG/DL; Status: F Test: CREATININE FOR GFR; Value: 0.67; Range: 0.55-1.02; Units: MG/DL; Status: F Test: GLOMERULAR FILTRATION RATE; Value: > 60.0; Range: >60; Status: F Test: SODIUM LEVEL; Value: 138; Range: 136-145; Units: MEQ/L; Status: F Test: POTASSIUM SERUM; Value: 3.8; Range: 3.5-5.1; Units: MEQ/L; Status: F Test: CHLORIDE LEVEL; Value: 101; Range: 98-107; Units: MEQ/L; Status: F Test: CARBON DIOXIDE LEVEL; Value: 30; Range: 21-32; Units: MEQ/L; Status: F Test: ANION GAP; Value: 7; Range: 8-16; Abnormal: Below low normal; Units: MEQ/L; Status: F Test: CALCIUM LEVEL; Value: 9.1; Range: 8.5-10.1; Units: MG/DL; Status: F Test Note: ; Units are mL/min/1.73 m2 Chronic Kidney Disease Staging per NKF: Stage I & II GFR >=60 Normal to Mildly Decreased Stage III GFR 30-59 Moderately Decreased Stage IV GFR 15-29 Severely Decreased Stage V GFR <15 Very Little GFR Left ESRD GFR <15 on JEW[employer] Lab Order: -Blood Culture; SPEC'M 11/23/16 16:46 Test: BLOOD CULTURE; Value: No growth after 24 hours . All specimens observed; Status: F Test: BLOOD CULTURE; Value: for 5 days. Results final at that time.; Status: F Test: BLOOD CULTURE; Value: No Growth after 48 hours. All Specimens observed; Status: F Test: BLOOD CULTURE; Value: for 7 days. Results final at that time.; Status: F Lab Order: -Influenza A&B Rapid Antigen - Nose; SPEC'M 11/23/16 16:46 Test: INFLUENZA A RAPID SCR by ICA; Value: INFLUENZA A RESULTS NEGATIVE; Status: F Test: INFLUENZA A RAPID SCR by ICA; Value: Comments:; Status: F Test: INFLUENZA B RAPID SCR by ICA; Value: INFLUENZA B RESULTS NEGATIVE; Status: F Test Note: ; The Influenza test is a direct rapid immunoassay for the qualitative detection of Influenza viral antigen. Cell culture (Viral Culture) testing should be considered to confirm NEGATIVE results and to assist in detecting other viruses that can provide similar clinical symptoms. Please contact the lab within 24 hours ([phone] if confirmatory testing is desired. Lab Order: BLOOD CULTURES; SPEC'M 11/23/16 17:10 Test: BLOOD CULTURE; Value: No growth after 24 hours . All specimens observed; Status: F Test: BLOOD CULTURE; Value: for 5 days. Results final at that time.; Status: F Test: BLOOD CULTURE; Value: No Growth after 48 hours. All Specimens observed; Status: F Test: BLOOD CULTURE; Value: for 7 days. Results final at that time.; Status: F Lab Order: UCG- In Lab; SPEC'M 11/23/16 16:12 Test: URINE PREG TEST; Value: NEGATIVE; Range: NEGATIVE; Status: F Radiology Order: Chest, 2 View (pa\E\lat) Test: Chest, 2 View (pa\E\lat) REASON FOR EXAMINATION: fever; CHEST X-RAY, PA AND LATERAL: 11/23/2016.; ; Clinical history: Fever.; ; Findings: Two views are presented without prior study.; ; Findings: Lungs are well inflated. There is some peribronchial thickening and; streaky densities perihilar region, right greater than left. No dense; consolidation or effusion. Heart, mediastinal and hilar contours are normal.; Airway intact. Bony thorax shows no focal lesion.; ; Impression:; ; 1. Some minor perihilar streaky densities and peribronchial thickening right; greater than left. This may reflect bronchitis or reactive airway disease. No; effusion.; ; ; Signed by; Alexis Garcia MD 11/23/2016 08:30 P; Outcome: 18:16 Discharge ordered by Provider. ck7 18:29 Discharge Assessment: Patient awake, alert and oriented x 3. No cognitive and/or ms18 functional deficits noted. Patient verbalized understanding of disposition instructions. patient administered narcotics - no. The following High Risk Discharge criteria are identified: None. Discharged to home ambulatory. Condition: good Condition: stable Condition: improved. Discharge instructions given to patient, Instructed on discharge instructions, follow up and referral plans. medication usage, Demonstrated understanding of instructions, medications, Pt was receptive of discharge instructions/ teaching. Prescriptions given X 2. No special radiology studies were completed. 18:31 Patient left the ED. ms18 Signatures: Dispatcher [employer] EDMS Deny Reeves,RN RN Diana Mcleod, Hector Reg Helena Zaldivar,RN RN ck1 Mel Edwards,RN RN lf1 Oswaldo Laurent, RPA-C RPA-Cck7 Lisa Martell gr2 Liseth Schafer RN RN ms18 Deanne Zarate Chart Complete MTDD
== END 2016-11-23 18:31 | disposition home or self-care (01) ==
LOC: M ED 15:58
DX: J02.0 Streptococcal pharyngitis (principal); N39.0 Urinary tract infection, site not specified; B19.10 Unspecified viral hepatitis B without hepatic coma

== ENCOUNTER → 2016-12-01 | Outpatient (REF) | payer OTHER | LOC: M SFHCPLAZ 14:37 | PROVIDERS: ATTEND Nurse Practitioner Family | DX: R59.0 Localized enlarged lymph nodes (principal); R21 Rash and other nonspecific skin eruption; N89.8 Other specified noninflammatory disorders of vagina ==

== ENCOUNTER → 2017-03-15 | Outpatient (REF) | payer OTHER | LOC: M SFHCPLAZ 11:03 | PROVIDERS: ATTEND Nurse Practitioner Family | DX: E04.9 Nontoxic goiter, unspecified (principal) ==

== ENCOUNTER → 2017-03-16 | Outpatient (REF) | payer OTHER ==
[2017-03-16 16:25] LABS: ANION GAP 4 MEQ/L (8-16); BLOOD UREA NITROGEN 10 MG/DL (7-18); CALCIUM LEVEL 9.3 MG/DL (8.5-10.1); CARBON DIOXIDE LEVEL 31 MEQ/L (21-32); CHLORIDE LEVEL 104 MEQ/L (98-107); CREATININE FOR GFR 0.55 MG/DL (0.55-1.02); FREE T4 0.92 NG/DL (0.76-1.46); GLOMERULAR FILTRATION RATE > 60.0 (>60); GLUCOSE, FASTING 62 MG/DL (70-105); SODIUM LEVEL 139 MEQ/L (136-145)
== END ==
LOC: M SFHCPLAZ 13:30
PROVIDERS: ATTEND Nurse Practitioner Family
DX: E04.9 Nontoxic goiter, unspecified (principal); Z86.32 Personal history of gestational diabetes

== ENCOUNTER → 2017-04-13 | Outpatient (REF) | payer OTHER ==
[~2017-04-13] MED LIST changes: -FOLI1TAB2 PO; +FOLI1TAB4 PO; +TENO30TAB PO; -VIRE300T PO
[2017-04-13 12:26] LABS: ALBUMIN 3.5 GM/DL (3.2-5.2); ALBUMIN/GLOBULIN RATIO 0.9 (1.00-1.93); BILIRUBIN,DIRECT 0.1 MG/DL (0.0-0.2); BILIRUBIN,TOTAL 0.7 MG/DL (0.2-1.0); TOTAL PROTEIN 7.4 GM/DL (6.4-8.2)
== END ==
LOC: M SFHCPLAZ 08:36
PROVIDERS: ATTEND Internal Medicine Infectious Disease
DX: B18.1 Chronic viral hepatitis B without delta-agent (principal)

== ENCOUNTER → 2017-07-18 | Outpatient (REF) | payer OTHER ==
[2017-07-18 18:52] LABS: ALBUMIN 3.9 GM/DL (3.2-5.2); ALBUMIN/GLOBULIN RATIO 0.98 (1.00-1.93); ALKALINE PHOSPHATASE 78 U/L (45-117); ALT/SGPT 34 U/L (12-78); ANION GAP 7 MEQ/L (8-16); AST/SGOT 14 U/L (15-37); BILIRUBIN,TOTAL 0.4 MG/DL (0.2-1.0); BLOOD UREA NITROGEN 11 MG/DL (7-18); CALCIUM LEVEL 9.3 MG/DL (8.5-10.1); CARBON DIOXIDE LEVEL 29 MEQ/L (21-32); CHLORIDE LEVEL 101 MEQ/L (98-107); CREATININE FOR GFR 0.71 MG/DL (0.55-1.02); GLOMERULAR FILTRATION RATE > 60.0 (>60); GLUCOSE, FASTING 150 MG/DL (70-105); POTASSIUM SERUM 3.9 MEQ/L (3.5-5.1); SODIUM LEVEL 137 MEQ/L (136-145); TOTAL PROTEIN 7.9 GM/DL (6.4-8.2)
[2017-08-01 07:13] LABS: FIBROSPECT1 SEE SEPARATE REPORT
== END ==
LOC: M SFHCPLAZ 15:05
PROVIDERS: ATTEND Internal Medicine Infectious Disease
DX: B18.1 Chronic viral hepatitis B without delta-agent (principal)

== ENCOUNTER → 2018-01-18 | Outpatient (REF) | payer OTHER ==
[2018-01-18 13:00] LABS: BASO % 0.6 % (0.0-1.0); EOS # 0.3 10^3/uL (0.0-0.50); EOS % 5.1 % (0.0-3.0); HEMOGLOBIN 14.2 g/dl (12.0-15.5); IMMATURE GRANULOCYTE % 0.2 % (0-3.0); LYMPH # 1.5 10^3/uL (1.5-4.5); LYMPH % 30.2 % (24.0-44.0); MEAN CORPUSCULAR HGB CONC 32.3 g/dl (32.0-36.5); MONO # 0.5 10^3/uL (0.0-0.8); MONO % 10.2 % (0.0-5.0); NEUTROPHILS # 2.7 10^3/uL (1.8-7.7); NEUTROPHILS % 53.7 % (36.0-66.0); PLATELET COUNT, AUTOMATED 274 10^3/uL (150-450); RED BLOOD COUNT 4.89 10^6/uL (4.00-5.40); RED CELL DISTRIBUTION WIDTH 11.8 % (11.5-14.5); WHITE BLOOD COUNT 5.1 10^3/uL (4.0-10.0)
[2018-01-18 13:45] LABS: ALBUMIN 3.9 GM/DL (3.2-5.2); ALBUMIN/GLOBULIN RATIO 0.98 (1.00-1.93); ALKALINE PHOSPHATASE 74 U/L (45-117); ALT/SGPT 25 U/L (12-78); ANION GAP 8 MEQ/L (8-16); AST/SGOT 12 U/L (7-37); BILIRUBIN,TOTAL 0.3 MG/DL (0.2-1.0); BLOOD UREA NITROGEN 12 MG/DL (7-18); CALCIUM LEVEL 8.9 MG/DL (8.5-10.1); CARBON DIOXIDE LEVEL 27 MEQ/L (21-32); CHLORIDE LEVEL 107 MEQ/L (98-107); CREATININE FOR GFR 0.56 MG/DL (0.55-1.30); FREE T4 0.88 NG/DL (0.76-1.46); GLOMERULAR FILTRATION RATE > 60.0 (>60); GLUCOSE, FASTING 86 MG/DL (70-100); POTASSIUM SERUM 4.1 MEQ/L (3.5-5.1); SODIUM LEVEL 142 MEQ/L (136-145); TOTAL PROTEIN 7.9 GM/DL (6.4-8.2)
[2018-01-21 00:06] LABS: HBV 6200 IU/mL (.); log10 HBV IU/mL 3.792 (.)
[2018-01-22 14:12] LABS: HEPATITIS BE ANTIGEN Positive (Negative)
[2018-01-22 14:12] LABS: HEPATITIS BE ANTIBODY Negative (Negative)
== END ==
LOC: M SFHCPLAZ 08:47
DX: B18.1 Chronic viral hepatitis B without delta-agent (principal); C73 Malignant neoplasm of thyroid gland

== ENCOUNTER 2018-07-26 14:41 | Emergency (ER) | payer OTHER | END 2018-07-26 17:07 | disposition home or self-care (01) | LOC: M ED 14:41 | DX: S80.11XA Contusion of right lower leg, initial encounter (principal); V49.49XA Driver injured in collision with other motor vehicles in traffic accident, initial encounter; Y92.410 Unspecified street and highway as the place of occurrence of the external cause; K76.89 Other specified diseases of liver; B19.10 Unspecified viral hepatitis B without hepatic coma | CPT/HCPCS: 99283 ==

== ENCOUNTER → 2019-01-22 | Outpatient (REF) | payer OTHER ==
[~2019-01-22] MED LIST changes: +FOLI1TAB11 PO; -FOLI1TAB4 PO
[2019-01-22 12:41] LABS: ALBUMIN 4.2 GM/DL (3.2-5.2); ALT/SGPT 23 U/L (12-78); BILIRUBIN,TOTAL 0.9 MG/DL (0.2-1.0); BLOOD UREA NITROGEN 12 MG/DL (7-18); CALCIUM LEVEL 8.9 MG/DL (8.5-10.1); CARBON DIOXIDE LEVEL 30 MEQ/L (21-32); CHLORIDE LEVEL 102 MEQ/L (98-107); CREATININE FOR GFR 0.64 MG/DL (0.55-1.30); GLOMERULAR FILTRATION RATE > 60.0 (>60); GLUCOSE, FASTING 84 MG/DL (70-100); POTASSIUM SERUM 4.1 MEQ/L (3.5-5.1); SODIUM LEVEL 139 MEQ/L (136-145); TOTAL PROTEIN 8.5 GM/DL (6.4-8.2)
[2019-01-25 00:08] LABS: HBV 300 IU/mL (.); HEPATITIS BE ANTIBODY Negative (Negative); HEPATITIS BE ANTIGEN Positive (Negative); log10 HBV IU/mL 2.477 (.)
== END ==
LOC: M SFHCPLAZ 09:07
PROVIDERS: ATTEND Internal Medicine Infectious Disease
DX: B18.1 Chronic viral hepatitis B without delta-agent (principal); C73 Malignant neoplasm of thyroid gland

== ENCOUNTER → 2020-07-11 | Outpatient (CLI) | payer OTHER ==
[2020-07-11 13:10] LABS: ALBUMIN 4.2 GM/DL (3.2-5.2); BILIRUBIN,DIRECT 0.1 MG/DL (0.0-0.2); BILIRUBIN,TOTAL 0.7 MG/DL (0.2-1.0); FREE T4 0.92 NG/DL (0.76-1.46); THYROID STIMULATING HORMONE 0.791 uIU/ML (0.358-3.740); TOTAL PROTEIN 8.2 GM/DL (6.4-8.2)
[2020-07-15 23:08] LABS: HBV 30 IU/mL (.); HEPATITIS BE ANTIBODY Negative (Negative); HEPATITIS BE ANTIGEN Positive (Negative); log10 HBV IU/mL 1.477 (.)
== END ==
LOC: M WUC 09:55
PROVIDERS: ATTEND Internal Medicine Infectious Disease
DX: B18.1 Chronic viral hepatitis B without delta-agent (principal); C73 Malignant neoplasm of thyroid gland

== ENCOUNTER → 2021-01-19 | Outpatient (REF) | payer OTHER ==
[2021-01-19 14:54] LABS: BASO # 0.1 10^3/uL (0.0-0.2); BASO % 0.7 % (0.0-1.0); EOS # 0.1 10^3/uL (0.0-0.5); EOS % 1.1 % (0.0-3.0); HEMOGLOBIN 14.3 g/dl (12.0-15.5); LYMPH # 1.9 10^3/uL (1.5-5.0); LYMPH % 23.3 % (24.0-44.0); MEAN CORPUSCULAR HEMOGLOBIN 29.2 pg (27.0-33.0); MEAN CORPUSCULAR HGB CONC 31.8 g/dl (32.0-36.5); MONO # 0.4 10^3/uL (0.0-0.8); MONO % 5.4 % (2.0-8.0); NEUTROPHILS # 5.7 10^3/uL (1.5-8.5); NEUTROPHILS % 69.3 % (36.0-66.0); PLATELET COUNT, AUTOMATED 344 10^3/uL (150-450); RED BLOOD COUNT 4.89 10^6/uL (4.00-5.40); WHITE BLOOD COUNT 8.2 10^3/uL (4.0-10.0)
[2021-01-19 15:28] LABS: ALBUMIN 4.1 GM/DL (3.2-5.2); BILIRUBIN,DIRECT 0.2 MG/DL (0.0-0.2); BILIRUBIN,TOTAL 0.8 MG/DL (0.2-1.0); TOTAL PROTEIN 7.9 GM/DL (6.4-8.2)
== END ==
LOC: M SFHCPLAZ 10:11
PROVIDERS: ATTEND Internal Medicine Infectious Disease
DX: B18.1 Chronic viral hepatitis B without delta-agent (principal)

== ENCOUNTER → 2021-06-10 | Outpatient (CLI) | payer OTHER ==
[2021-06-10 14:19] LABS: ALBUMIN 4.1 GM/DL (3.2-5.2); ALT/SGPT 28 U/L (12-78); BILIRUBIN,TOTAL 0.8 MG/DL (0.2-1.0); BLOOD UREA NITROGEN 15 MG/DL (7-18); CALCIUM LEVEL 9.9 MG/DL (8.5-10.1); CARBON DIOXIDE LEVEL 32 MEQ/L (21-32); CHLORIDE LEVEL 104 MEQ/L (98-107); CREATININE FOR GFR 0.64 MG/DL (0.55-1.30); FREE T4 0.93 NG/DL (0.76-1.46); GLOMERULAR FILTRATION RATE > 60.0 (>60); GLUCOSE, FASTING 79 MG/DL (70-100); POTASSIUM SERUM 4.3 MEQ/L (3.5-5.1); SODIUM LEVEL 137 MEQ/L (136-145); THYROID STIMULATING HORMONE 0.726 uIU/ML (0.358-3.740); TOTAL PROTEIN 8.4 GM/DL (6.4-8.2)
== END ==
LOC: M PLALAB 10:56
PROVIDERS: ATTEND Internal Medicine Infectious Disease
DX: B18.1 Chronic viral hepatitis B without delta-agent (principal)

== ENCOUNTER → 2021-06-17 | Outpatient (REF) | payer OTHER | LOC: M WUC 20:34 | PROVIDERS: ATTEND Physician Assistant | DX: R05 Cough (principal) ==

== ENCOUNTER → 2021-12-07 | Outpatient (CLI) | payer OTHER ==
[2021-12-09 03:11] LABS: HBV <10 IU/mL (.); HEPATITIS BE ANTIBODY Negative (Negative); HEPATITIS BE ANTIGEN Positive (Negative)
== END ==
LOC: M PLALAB 10:46
PROVIDERS: ATTEND Internal Medicine Infectious Disease
DX: B18.1 Chronic viral hepatitis B without delta-agent (principal)

== ENCOUNTER → 2022-06-30 | Outpatient (CLI) | payer OTHER ==
[2022-06-30 14:33] LABS: ALBUMIN 4.3 GM/DL (3.2-5.2); BILIRUBIN,DIRECT 0.1 MG/DL (0.0-0.2); BILIRUBIN,TOTAL 0.5 MG/DL (0.2-1.0); TOTAL PROTEIN 8.5 GM/DL (6.4-8.2)
[2022-07-01 23:07] LABS: HBV <10 IU/mL (.)
== END ==
LOC: M PLALAB 08:56
PROVIDERS: ATTEND Internal Medicine Infectious Disease
DX: B18.1 Chronic viral hepatitis B without delta-agent (principal)

== ENCOUNTER → 2022-12-29 | Outpatient (CLI) | payer OTHER ==
[2022-12-29 14:48] LABS: THYROID STIMULATING HORMONE 0.645 uIU/ML (0.55-4.78)
[2022-12-29 14:49] LABS: FREE T4 1.15 NG/DL (0.89-1.76)
[2022-12-29 14:53] LABS: ALBUMIN 4.4 G/DL (3.2-5.2); BILIRUBIN,DIRECT 0.2 MG/DL (<0.4); BILIRUBIN,TOTAL 0.7 MG/DL (0.3-1.2); TOTAL PROTEIN 8.1 G/DL (5.7-8.2)
[2022-12-30 19:07] LABS: HBV <10 IU/mL (.)
== END ==
LOC: M PLALAB 11:17
PROVIDERS: ATTEND Internal Medicine Infectious Disease
DX: B18.1 Chronic viral hepatitis B without delta-agent (principal)

== ENCOUNTER → 2023-09-19 | Outpatient (CLI) | payer OTHER ==
[2023-09-19 14:50] LABS: ALKALINE PHOSPHATASE 58 U/L (46-116); ALT/SGPT 22 U/L (7.0-40); AST/SGOT 14 U/L (<34); BILIRUBIN,TOTAL 0.5 MG/DL (0.3-1.2); BLOOD UREA NITROGEN 10 MG/DL (9-23); CALCIUM LEVEL 9.5 MG/DL (8.5-10.1); CARBON DIOXIDE LEVEL 27 MMOL/L (20-31); CHLORIDE LEVEL 108 MMOL/L (98-107); CREATININE FOR GFR 0.54 MG/DL (0.55-1.30); GLOMERULAR FILTRATION RATE > 60.0 (>60); GLUCOSE, FASTING 108 MG/DL (60-100); POTASSIUM SERUM 3.7 MMOL/L (3.5-5.1); SODIUM LEVEL 140 MMOL/L (136-145); TOTAL PROTEIN 7.5 G/DL (5.7-8.2)
[2023-09-19 14:55] LABS: FREE T4 1.15 NG/DL (0.89-1.76); THYROID STIMULATING HORMONE 0.755 uIU/ML (0.55-4.78)
== END ==
LOC: M PLALAB 10:55
PROVIDERS: ATTEND Medical Genetics Clinical Genetics (M.D.)
DX: E89.0 Postprocedural hypothyroidism (principal)

== ENCOUNTER → 2023-12-25 | Outpatient (CLI) | payer OTHER ==
[2023-12-25 15:17] LABS: ALBUMIN 4.1 G/DL (3.2-5.2); BILIRUBIN,DIRECT 0.1 MG/DL (<0.4); BILIRUBIN,TOTAL 0.5 MG/DL (0.3-1.2); TOTAL PROTEIN 7.9 G/DL (5.7-8.2)
== END ==
LOC: M PLALAB 11:03
PROVIDERS: ATTEND Internal Medicine Infectious Disease
DX: B18.1 Chronic viral hepatitis B without delta-agent (principal)

== ENCOUNTER → 2024-06-21 | Outpatient (CLI) | payer OTHER ==
[2024-06-21 13:57] LABS: ALBUMIN 4.2 G/DL (3.2-5.2); BILIRUBIN,DIRECT 0.2 MG/DL (<0.4); BILIRUBIN,TOTAL 0.6 MG/DL (0.3-1.2); TOTAL PROTEIN 8.2 G/DL (5.7-8.2)
== END ==
LOC: M PLALAB 11:15
PROVIDERS: ATTEND Internal Medicine Infectious Disease
DX: B18.1 Chronic viral hepatitis B without delta-agent (principal)

== ENCOUNTER → 2025-01-31 | Outpatient (CLI) | payer OTHER ==
[2025-01-31 11:45] LABS: BASO # 0.1 10^3/uL (0.0-0.2); BASO % 0.7 % (0.0-1.0); EOS # 0.1 10^3/uL (0.0-0.5); HEMATOCRIT 44.2 % (36.0-47.0); HEMOGLOBIN 14.4 g/dl (12.0-15.5); LYMPH # 1.8 10^3/uL (1.5-5.0); LYMPH % 21.1 % (24.0-44.0); MEAN CORPUSCULAR HEMOGLOBIN 29.3 pg (27.0-33.0); MEAN CORPUSCULAR HGB CONC 32.6 g/dl (32.0-36.5); MONO # 0.8 10^3/uL (0.0-0.8); MONO % 8.8 % (2.0-8.0); NEUTROPHILS # 5.9 10^3/uL (1.5-8.5); NEUTROPHILS % 68.2 % (36.0-66.0); PLATELET COUNT, AUTOMATED 331 10^3/uL (150-450); RED BLOOD COUNT 4.91 10^6/uL (4.00-5.40); WHITE BLOOD COUNT 8.7 10^3/uL (4.0-10.0)
[2025-01-31 12:15] LABS: ALBUMIN 4.2 G/DL (3.2-5.2); ALKALINE PHOSPHATASE 62 U/L (35-104); ALT/SGPT 29 U/L (7.0-40); AST/SGOT 18 U/L (<34); BLOOD UREA NITROGEN 12 MG/DL (9-23); CALCIUM LEVEL 9.5 MG/DL (8.5-10.1); CARBON DIOXIDE LEVEL 30 MMOL/L (20-31); CHLORIDE LEVEL 102 MMOL/L (98-107); CREATININE FOR GFR 0.55 MG/DL (0.55-1.30); GLOMERULAR FILTRATION RATE > 90.0 (>60); GLUCOSE, FASTING 88 MG/DL (60-100); POTASSIUM SERUM 4.5 MMOL/L (3.5-5.1); SODIUM LEVEL 141 MMOL/L (136-145); TOTAL PROTEIN 8.1 G/DL (5.7-8.2)
== END ==
LOC: M PLALAB 09:25
PROVIDERS: ATTEND Internal Medicine Infectious Disease
DX: B18.1 Chronic viral hepatitis B without delta-agent (principal)

== ENCOUNTER → 2025-07-15 | Outpatient (CLI) | payer OTHER ==
[2025-07-15 15:44] LABS: ALT/SGPT 27 U/L (7.0-40); AST/SGOT 19 U/L (<34); CALCIUM LEVEL 9.3 MG/DL (8.5-10.1); CARBON DIOXIDE LEVEL 30 MMOL/L (20-31); CHLORIDE LEVEL 102 MMOL/L (98-107); CREATININE FOR GFR 0.58 MG/DL (0.55-1.30); GLOMERULAR FILTRATION RATE > 90.0 (>60); POTASSIUM SERUM 4.2 MMOL/L (3.5-5.1); SODIUM LEVEL 140 MMOL/L (136-145)
== END ==
LOC: M PLALAB 11:51
PROVIDERS: ATTEND Internal Medicine Infectious Disease
DX: B18.1 Chronic viral hepatitis B without delta-agent (principal); C73 Malignant neoplasm of thyroid gland